=== PATIENT | male | born 1980 | race Two or more races ===

== ENCOUNTER 2021-06-23 07:16 | Outpatient (CLI) | payer OTHER | END 2021-06-23 07:27 | disposition home or self-care (01) | LOC: LAB 07:16 | PROVIDERS: ATTEND Internal Medicine Cardiovascular Disease | DX: I10 Essential (primary) hypertension (principal); E03.9 Hypothyroidism, unspecified; R10.9 Unspecified abdominal pain; D64.9 Anemia, unspecified; N39.0 Urinary tract infection, site not specified; N40.0 Benign prostatic hyperplasia without lower urinary tract symptoms; Z13.1 Encounter for screening for diabetes mellitus; E78.5 Hyperlipidemia, unspecified ==